=== PATIENT | female | born 1995 | race Caucasian/White ===

== ENCOUNTER 2021-10-13 13:26 | Emergency (ER) | payer OTHER ==
[~2021-10-13] VITALS: Ht 171.4 cm; Wt 78.2 kg
[2021-10-13] MEDS ORDERED: DEBL1TAB (13:34)
[2021-10-13 16:06] VITALS: BP 120/69
== END 2021-10-13 16:08 | disposition home or self-care (01) ==
LOC: M ED 13:26
DX: M79.652 Pain in left thigh (principal); Q87.2 Congenital malformation syndromes predominantly involving limbs; Z79.3 Long term (current) use of hormonal contraceptives